=== PATIENT | male | born 1955 | race Caucasian/White ===

== ENCOUNTER 2016-10-11 08:47 | Emergency (ER) | payer SELFPAY ==
[~2016-10-11] VITALS: Ht 167.6 cm; Wt 86.0 kg
[~2016-10-11 08:47] MED LIST: PROS5TAB PO; TAMS5CAP PO
[2016-10-11 08:48] VITALS: BP 114/55; PULSE 86; RESP 17; TEMP 97.9; O2SAT 97
--- NOTE | 2016-10-11 09:33 | PD ---
HPI Chief Complaint: Leak [employer] Problem Time Seen by Provider: 09:09 Travel History International Travel<30 days: No Contact w/Intl Traveler<30days: No Traveled to known affect area: No History of Present Illness HPI This patient has chronic urinary retention and has had an indwelling Cartwright catheter for 6 months. He follows with urology and gets a monthly catheter change. He complains of 2 things. #1, he has left scrotal pain and swelling for one day. No injury or fever. Severity is moderate. No alleviating factors. #2, he requests Cartwright catheter change as he had an appointment on Wednesday to do this at the urologist office but did not go. PFSH Past Medical History Blood Disorders: No Cancer: No Cardiovascular Problems: No Endocrine: No Gastrointestinal Disorders: Yes GERD: Yes Genitourinary: Yes (BPH) Immune Disorder: No Musculoskeletal: Yes Neurologic: No Psychiatric: No Reproductive: No Respiratory: Yes Immunizations Current: Yes Tetanus Vaccination: Unknown Influenza Vaccination: No Past Surgical History Appendectomy: Yes Other Surgery: Yes Social History Alcohol Use: Yes (DAILY [employer]ERS) Tobacco Use: No Substance Use: No Allergies-Medications (Allergen,Severity, Reaction): Coded Allergies: No Known Allergies (Verified , 10/11/16) Reported Meds & Prescriptions Reported Meds & Active Scripts Active Reported Proscar (Finasteride) 5 Mg Tab 5 Mg PO DAILY Do not crush. Flomax (Tamsulosin HCl) 0.4 Mg Cap 0.4 Mg PO DAILY Review of Systems General / Constitutional: No: Fever Eyes: No: Visual changes HENT: No: Headaches Cardiovascular: No: Chest Pain or Discomfort Respiratory: No: Shortness of Breath Gastrointestinal: No: Abdominal Pain Genitourinary: Positive: Other (scrotal pain), No: Dysuria Musculoskeletal: No: Pain Skin: No Rash Neurologic: No: Weakness Psychiatric: No: Depression Endocrine: No: Polydipsia Hematologic/Lymphatic: No: Easy Bruising Physical Exam Narrative GENERAL: Well-nourished, well-developed patient in no apparent distress. SKIN: Warm and dry. HEAD: Atraumatic. Normocephalic. EYES: Pupils equal and round. No scleral icterus. No injection or drainage. ENT: No nasal bleeding or discharge. Mucous membranes pink and moist. NECK: Trachea midline. No JVD. CARDIOVASCULAR: Regular rate and rhythm. No murmur appreciated. RESPIRATORY: No accessory muscle use. Clear to auscultation. Breath sounds equal bilaterally. GASTROINTESTINAL: Abdomen soft, non-tender, nondistended. Hepatic and splenic margins not palpable. MUSCULOSKELETAL: No obvious deformities. No clubbing. No cyanosis. No edema. NEUROLOGICAL: Awake and alert. No obvious cranial nerve deficits. Motor grossly within normal limits. Normal speech. PSYCHIATRIC: Appropriate mood and affect; insight and judgment normal. : Has a catheter in place attached to a leg bag. He does have enlargement of the left testicle which is tender. There is no erythema or warmth of the scrotum. Right testicle is nontender. I don't detect any hernia Data Data Last Documented VS Vital Signs Date Time Temp Pulse Resp B/P Pulse Ox O2 Delivery O2 Flow Rate FiO2 10/11/16 08:48 97.9 86 17 114/55 97 Orders Us Testicles W Doppler (10/11/16 ) Urinary Catheter Insert/Apply (10/11/16 09:23) Remove Urinary Catheter .ONCE (10/11/16 09:23) MDM Medical Decision Making Medical Screen Exam Complete: Yes Emergency Medical Condition: Yes Medical Record Reviewed: Yes Differential Diagnosis Torsion, varicocele, hernia Narrative Course I have reviewed the patient's electronic medical record. Ultrasound of the testicles has been completed. I reviewed the radiologist's report. There is no torsion. There is some prominence of left epididymitis I have prescribed some doxycycline. Reviewed with the patient. I don't see evidence of hernia on clinical exam. Cartwright catheter was changed out and attached to a new leg bag. He will follow-up with his urologist. I wrote some a medicine as well. Diagnosis Primary Impression: Epididymitis with no abscess Additional Impression: Urinary catheter (Cartwright) change required Additional Instructions: The patient was advised to follow up with their urologist and return if they worsen. The patient was warned about potential sedation for the medications they will receive on prescription. Med/Other Pt SpecificInfo: Prescription(s) given Scripts Tramadol 50 Mg Tab50 Mg PO Q6H PRN (PAIN) #20 TAB Ref 0 Prov:Giovanni Esparza MD 10/11/16 Doxycycline Hyclate 100 Mg Vmo562 Mg PO BID #20 CAP Ref 0 Prov:Giovanni sEparza MD 10/11/16 Disposition: 01 DISCHARGE HOME Condition: Stable Giovanni Esparza MD Oct 11, 2016 09:33
--- NOTE | 2016-10-11 10:32 | RADRPT ---
EXAM DATE/TIME: 10/11/2016 10:03 [facility] COMPARISON: No previous studies available for comparison. INDICATIONS : Left testicle pain and swelling. MEDICAL HISTORY : Gastroesophageal reflux disease. Dyspnea. BPH. Urinary retention. Diabetes. SURGICAL HISTORY : Right knee surgery. ENCOUNTER: Initial ACUITY: 3 days PAIN SCORE: 5/10 LOCATION: Bilateral scrotum. MEASUREMENTS: RIGHT TESTICLE: 4.1 x 2.0 x 2.8cm LEFT TESTICLE: 3.9 x 2.6 x 2.3 cm FINDINGS: RIGHT TESTICLE: Homogeneous echotexture without intra or extratesticular mass. Blood flow is symmetric and within no rmal limits. No hydrocele or varicocele. Epididymis is within normal limits. LEFT TESTICLE: Homogeneous echotexture without intra or extratesticular mass. Blood flow is symmetric and within no rmal limits. No hydrocele or varicocele. Epididymis is mildly enlarged. There is an echogenic area in the low inguinal canal possible fatty hernia SCROTUM: Within normal limits. CONCLUSION: Some prominence of left epididymis possible epididymitis. There is also prominent fat and a small teddy unt of fluid in left inguinal canal possible fat-containing hernia. No bowel is identified. Martin Alvarez MD on October 11, 2016 at 10:30 Board Certified Radiologist. This report was verified electronically.
[2016-10-11] MEDS ORDERED: TRAM50TA PO (11:38)
[2016-10-11] MEDS ORDERED: DOXY100C PO (11:38)
[2016-10-11 12:15] VITALS: BP 154/78
[2016-12-01] MEDS ORDERED: OXYB5TAB10 PO (14:00)
[2016-12-02] MEDS ORDERED: FINA5TAB2 PO (16:43)
[2016-12-02] MEDS ORDERED: TAMS0.4C4 PO (16:45)
== END 2016-10-11 12:26 | disposition home or self-care (01) ==
LOC: NEPC 08:47
DX: N45.1 Epididymitis (principal); N40.0 Benign prostatic hyperplasia without lower urinary tract symptoms
CPT/HCPCS: 51702; 76870; 93975